=== PATIENT | male | born 1975 | race Caucasian/White ===

== ENCOUNTER 2016-07-21 05:21 | Emergency (ER) | payer OTHER ==
--- NOTE | 2016-07-21 05:36 | PHYS DOC ---
Past History Past Medical History: No Pertinent History Past Surgical History: No Surgical History Smoking: Cigarettes Alcohol Use: Rarely Drug Use: None Adult General Chief Complaint Chief Complaint: SHORTNESS OF BREATH HPI HPI 41-year-old male presenting to the emergency Department shortness of breath this morning. Reports it was slow in onset. It is associated with tingling in the hands. He denies any major medical conditions. Location lungs. Duration intermittent. No alleviating factors present. He denies fevers. He has been coughing for the past 24-48 hours. He does have a history of smoking. It is worse with exertion and alleviated by rest. He denies unilateral leg swelling, hemoptysis, personal or family history of blood clotting disorders, or chest pain. Review of systems is negative for chest pain abdominal pain nausea vomiting diaphoresis. All other review of systems is negative unless otherwise noted in history of present illness. Review of Systems Review of Systems SEE ABOVE. Current Medications Current Medications Current Medications Medications (Trade) Dose Ordered Sig/Olu Start Time Stop Time Status Last Admin Dose Admin Albuterol/ Ipratropium (Duoneb) 3 ml 1X ONCE 07/21/16 05:30 07/21/16 05:31 UNV Physical Exam Physical Exam Constitutional: Well developed, well nourished, no acute distress, non-toxic appearance. [] HENT: Normocephalic, atraumatic, bilateral external ears normal, oropharynx moist, no oral exudates, nose normal. [] Eyes: PERRLA, EOMI, conjunctiva normal, no discharge. [] Neck: Normal range of motion, no tenderness, supple, no stridor. [] Cardiovascular:Heart rate regular rhythm, no murmur [] Lungs & Thorax: Bilateral breath sounds clear to auscultation [] Abdomen: Bowel sounds normal, soft, no tenderness, no masses, no pulsatile masses. [] Skin: Warm, dry, no erythema, no rash. [] Back: No tenderness, no CVA tenderness. [] Extremities: No tenderness, no cyanosis, no clubbing, ROM intact, no edema. [] Neurologic: Alert and oriented X 3, normal motor function, normal sensory function, no focal deficits noted. [] Psychologic: Affect normal, judgement normal, mood normal. [] EKG EKG [] Radiology/Procedures Radiology/Procedures []Chest x-ray reviewed by myself shows no obvious infiltrate or pneumothorax present. No obvious acute cardiopulmonary process present. Course & Med Decision Making Course & Med Decision Making Pertinent Labs and Imaging studies reviewed. (See chart for details) [] 41-year-old male presenting to the emergency Department shortness of breath. Vital signs heart rate of 61. Saturating 99% on room air. Breathing at about 15 times a minute. Pertinent physical exam findings showed mild wheezing in both lung langley without any crackles. The patient was given a DuoNeb in the emergency department. Blood work obtained. I reviewed the patient's chest x-ray which didn't show any acute obvious abnormalities. The patient was then signed out to Dr. Huggins at 0600 with plans to reevaluate patient and follow-up on pending blood work at this time. Dragon Disclaimer Dragon Disclaimer This chart was dictated in whole or in part using Voice Recognition software in a busy, high-work load, and often noisy Emergency Department environment. It may contain unintended and wholly unrecognized errors or omissions. Departure Departure: Impression: Primary Impression: Shortness of breath Referrals: PCP,DAVID (PCP) BILLY PATHAK MD July 21, 2016 05:36
[2016-07-21 05:58] LABS: BASO % 1 % (0-3); EOS # 0.1 x10^3/uL (0.0-0.7); EOS % 2 % (0-3); HEMATOCRIT 43.3 % (39.0-53.0); HEMOGLOBIN 15.3 g/dL (13.0-17.5); LYMPH # 1.9 x10^3/uL (1.0-4.8); LYMPH % 33 % (24-48); MEAN CORPUSCULAR HEMOGLOBIN 34 pg (25-35); MEAN CORPUSCULAR HGB CONC 35 g/dL (31-37); MEAN CORPUSCULAR VOLUME 96 fL (79-100); MONO # 0.7 x10^3/uL (0.0-1.1); MONO % 11 % (0-9); NEUT # 3.2 x10^3uL (1.8-7.7); NEUT % 54 % (31-73); PLATELET COUNT 237 x10^3/uL (140-400); RED CELL DISTRIBUTION WIDTH 13.5 % (11.5-14.5); WHITE BLOOD COUNT 5.9 x10^3/uL (4.0-11.0)
[2016-07-21] MEDS ORDERED: IPRATRPIUM/ALBUTEROL 0.5/2.5MG 3 ML NEBU. NEB ONE (06:00)
[2016-07-21 06:16] LABS: ALBUMIN 3.9 g/dL (3.4-5.0); CALCIUM 9.2 mg/dL (8.5-10.1); CREATININE 1.1 mg/dL (0.7-1.3); DIRECT BILIRUBIN 0.3 mg/dL (0.0-0.2); GFR 73.4; POTASSIUM 3.6 mmol/L (3.5-5.1); TOTAL BILIRUBIN 1.3 mg/dL (0.2-1.0); TOTAL PROTEIN 7.5 g/dL (6.4-8.2)
--- NOTE | 2016-07-21 06:52 | PHYS DOC ---
Past History Past Medical History: No Pertinent History Past Surgical History: No Surgical History Smoking: Cigarettes Alcohol Use: Rarely Drug Use: None Adult General Chief Complaint Chief Complaint: SHORTNESS OF BREATH HPI HPI Patient is a 41 year old male who presents with shortness of breath. Patient states that he was actually breathless and began coughing. He felt like he was short of breath and hyperventilated and his fingers started "tingling. Because of these feelings he presents now to our emergency department for evaluation. He is a smoker and his mother and father both had heart disease he denies hypertension or high cholesterol or diabetes Review of Systems Review of Systems Constitutional: Denies fever or chills [] Eyes: Denies change in visual acuity, redness, or eye pain [] HENT: Denies nasal congestion or sore throat [] Respiratory: Patient awakened this morning with feeling of breathlessness [] Cardiovascular: No additional information not addressed in HPI [] GI: Denies abdominal pain, nausea, vomiting, bloody stools or diarrhea [] : Denies dysuria or hematuria [] Musculoskeletal: The patient complains of some upper back pain Integument: Denies rash or skin lesions [] Neurologic: Denies headache, focal weakness or he did have some tingling of his fingers after hyperventilating this morning] Endocrine: Denies polyuria or polydipsia [] Family History Family History Mother and father both had heart disease and his father had heart attack. Current Medications Current Medications Current Medications Medications (Trade) Dose Ordered Sig/Olu Start Time Stop Time Status Last Admin Dose Admin Albuterol/ Ipratropium (Duoneb) 3 ml 1X ONCE 07/21/16 06:00 07/21/16 06:01 DC 07/21/16 05:58 3 ML Allergies Allergies Allergies Coded Allergies Type Severity Reaction Last Updated Verified Unable to Assess 07/21/16 No Physical Exam Physical Exam Constitutional: Well developed, well nourished, no acute distress, non-toxic appearance. [] HENT: Normocephalic, atraumatic, bilateral external ears normal, oropharynx moist, no oral exudates, nose normal. [] Eyes: PERRLA, EOMI, conjunctiva normal, no discharge. [] Neck: Normal range of motion, no tenderness, supple, no stridor. [] Cardiovascular:Heart rate regular rhythm, no murmur [] Lungs & Thorax: Bilateral breath sounds clear to auscultation [] Abdomen: Bowel sounds normal, soft, no tenderness, no masses, no pulsatile masses. [] Skin: Warm, dry, no erythema, no rash. [] Back: No tenderness, no CVA tenderness. [] Extremities: No tenderness, no cyanosis, no clubbing, ROM intact, no edema. [] Neurologic: Alert and oriented X 3, normal motor function, normal sensory function, no focal deficits noted. [] Psychologic: Affect normal, judgement normal, mood normal. [] Current Patient Data Vital Signs Vital Signs Date Time Temp Pulse Resp B/P (MAP) Pulse Ox O2 Delivery O2 Flow Rate FiO2 07/21/16 05:25 98.0 66 20 100 Room Air Lab Results Laboratory Tests Test 07/21/16 05:45 White Blood Count 5.9 x10^3/uL (4.0-11.0) Red Blood Count 4.50 x10^6/uL (4.30-5.70) Hemoglobin 15.3 g/dL (13.0-17.5) Hematocrit 43.3 % (39.0-53.0) Mean Corpuscular Volume 96 fL (79-100) Mean Corpuscular Hemoglobin 34 pg (25-35) Mean Corpuscular Hemoglobin Concent 35 g/dL (31-37) Red Cell Distribution Width 13.5 % (11.5-14.5) Platelet Count 237 x10^3/uL (140-400) Neutrophils (%) (Auto) 54 % (31-73) Lymphocytes (%) (Auto) 33 % (24-48) Monocytes (%) (Auto) 11 % (0-9) H Eosinophils (%) (Auto) 2 % (0-3) Basophils (%) (Auto) 1 % (0-3) Neutrophils # (Auto) 3.2 x10^3uL (1.8-7.7) Lymphocytes # (Auto) 1.9 x10^3/uL (1.0-4.8) Monocytes # (Auto) 0.7 x10^3/uL (0.0-1.1) Eosinophils # (Auto) 0.1 x10^3/uL (0.0-0.7) Basophils # (Auto) 0.0 x10^3/uL (0.0-0.2) Sodium Level 139 mmol/L (136-145) Potassium Level 3.6 mmol/L (3.5-5.1) Chloride Level 103 mmol/L (98-107) Carbon Dioxide Level 23 mmol/L (21-32) Anion Gap 13 (6-14) Blood Urea Nitrogen 13 mg/dL (8-26) Creatinine 1.1 mg/dL (0.7-1.3) Estimated GFR (Cockcroft-Gault) 73.4 Glucose Level 94 mg/dL (70-99) Calcium Level 9.2 mg/dL (8.5-10.1) Total Bilirubin 1.3 mg/dL (0.2-1.0) H Direct Bilirubin 0.3 mg/dL (0.0-0.2) H Aspartate Amino Transferase (AST) 22 U/L (15-37) Alanine Aminotransferase (ALT) 30 U/L (16-63) Alkaline Phosphatase 69 U/L (46-116) Troponin I Quantitative < 0.017 ng/mL (0-0.055) Total Protein 7.5 g/dL (6.4-8.2) Albumin 3.9 g/dL (3.4-5.0) Lipase 112 U/L (73-393) EKG EKG EKG reveals a sinus rhythm with a rate of 67. [place] is normal there is some disc diffuse ST segment changes of early repolarization no ectopic beats otherwise normal [] Radiology/Procedures Radiology/Procedures Chest x-ray reveals a normal heart size lung langley are clear there is no other abnormalities noted Impressions: Anxiety and hyperventilation Musculoskeletal posterior thoracic pain Course & Med Decision Making Course & Med Decision Making Pertinent Labs and Imaging studies reviewed. (See chart for details) evaluation of the laboratory data reveals normal lab data with the exception of his bilirubin being slightly elevated which is not significant. His troponin is essentially within normal limits [] Dragon Disclaimer Dragon Disclaimer This chart was dictated in whole or in part using Voice Recognition software in a busy, high-work load, and often noisy Emergency Department environment. It may contain unintended and wholly unrecognized errors or omissions. Departure Departure: Impression: Primary Impression: Shortness of breath Additional Impressions: Anxiety hyperventilation Musculoskeletal pain Disposition: 01 HOME, SELF-CARE Condition: IMPROVED Referrals: PCPDAVID (PCP) Patient Instructions: Anxiety and Panic Attacks, [id number] Additional Instructions: Visit with patient for at least 5-10 minutes regarding smoking cessation and tips to quit Problem Qualifiers LIONEL POTTS MD July 21, 2016 06:52
--- NOTE | 2016-07-21 07:06 | RAD ---
Portable chest, 07/21/2016: History: Chest pain The heart size and pulmonary vascularity are normal. No pulmonary infiltrates are seen. There is no evidence of pleural fluid. IMPRESSION: No acute cardiopulmonary abnormality is detected.
[2016-07-21] MEDS ORDERED: ALPR0.25 PO (07:14)
[2016-07-21 07:15] VITALS: BP 110/68
--- NOTE | 2016-07-21 07:18 | EKG ---
[address] [address] Test Date: 2016-07-21 Test Time: 05:59:51 Pat Name: CATY CANNON Department: Room: Gender: M [employer]anner: : 1975 Requested By: BILLY PATHAK Order Number: [id number] Reading MD: Rio Brown Measurements Intervals [place] Rate: 67 P: 43 MA: 134 QRS: 62 QRSD: 96 T: 27 QT: 406 QTc: 432 Interpretive Statements SINUS RHYTHM Electronically Signed On 07-24-2016 14:14:08 CDT by Rio Brown
== END 2016-07-21 07:21 | disposition home or self-care (01) ==
LOC: ER 05:21
DX: R06.02 Shortness of breath (principal); R06.4 Hyperventilation; F41.9 Anxiety disorder, unspecified; M79.1 Myalgia; F17.210 Nicotine dependence, cigarettes, uncomplicated
CPT/HCPCS: 36415; 71010; 80048; 80076; 83690; 84484; 85027; 93005; 94640; 99285; J7620